=== PATIENT | male | born 1940 | race Caucasian/White ===

== ENCOUNTER 2016-09-29 07:33 | Emergency (ER) | payer MEDICARE ==
[2016-09-29 08:23] LABS: BILIRUBIN,URINE NEGATIVE (NEGATIVE); PH,URINE 6.5 PH (5.0-7.5)
[2016-09-29 08:30] LABS: UA w/ MICROSCOPIC CHARGE YES
[2016-09-29 08:42] LABS: UR CULTURE IF IND NOT INDICATED; WBC,URINE 0-3 /HPF (0-3)
[2016-09-29 09:38] LABS: BASOPHILS # (AUTO) 0.1 10^3/uL (0.0-0.1); BASOPHILS % (AUTO) 0.7 %; EOSINOPHILS # (AUTO) 0.3 10^3/uL (0.0-0.7); EOSINOPHILS % (AUTO) 3.2 %; HCT - HEMATOCRIT 49.7 % (42.0-52.0); HGB - HEMOGLOBIN 17.3 g/dL (14.0-18.0); LYMPHOCYTES # (AUTO) 3.2 10^3/uL (1.5-3.5); LYMPHOCYTES % (AUTO) 35.5 %; MEAN CORPUSCULAR HEMOGLOBIN 30.3 pg (27.0-31.0); MEAN CORPUSCULAR HGB CONC 34.8 g/dL (32.0-36.0); MEAN PLATELET VOLUME 7.2 fL (7.4-11.4); MONOCYTES # (AUTO) 0.8 10^3/uL (0.0-1.0); MONOCYTES % (AUTO) 9.2 %; NEUTROPHILS # (AUTO) 4.6 10^3/uL (1.5-6.6); NEUTROPHILS % (AUTO) 51.4 %; NUCLEATED RED BLOOD CELLS AUTO 0.3 /100WBC; RED BLOOD COUNT 5.72 10^6/uL (4.70-6.10); RED CELL DISTRIBUTION WIDTH 13.9 % (12.0-15.0); UNCORRECTED WHITE BLOOD COUNT 8.9 x10^3/uL; WHITE BLOOD COUNT 8.9 x10^3/uL (4.8-10.8)
[2016-09-29 09:50] LABS: ALBUMIN/GLOBULIN RATIO 1.3 (1.0-2.2); BILIRUBIN,TOTAL 1.1 mg/dL (0.2-1.0); CALCIUM 10.3 mg/dL (8.5-10.3); CREATININE 0.8 mg/dL (0.6-1.2); TOTAL PROTEIN 8.4 g/dL (6.7-8.2)
--- NOTE | 2016-09-29 10:50 | ED Physician Documentation ---
PD HPI MALE - Stated complaint Stated Complaint: BLOOD IN URINE - Chief complaint Chief Complaint: General - History obtained from History obtained from: Patient - History of Present Illness Timing - onset: Yesterday Timing - duration: Days (2) Timing - details: Gradual onset, Still present Associated symptoms: Hematuria. No: Urinary frequency, Unable to urinate, Discharge, Genital sore / lesion, Testiclar pain, Scrotal swelling, Abdominal pain, Back pain, Indwelling catheter, Chavez problem Similar symptoms before: Has not had sx before Recently seen: Not recently seen - Additional information Additional information: 75-year-old previously well male with development of hematuria yesterday with some pink urine and this morning with bright red urine. He has not had any clots in the urine. He is not have pain. He does not have a history of excessive physical activity. Review of Systems Constitutional: denies: Fever, Chills, Myalgias, Fatigue Eyes: denies: Decreased vision Ears: denies: Ear pain Nose: denies: Congestion Throat: denies: Sore throat Cardiac: denies: Chest pain / pressure, Palpitations Respiratory: denies: Dyspnea, Cough GI: denies: Abdominal Pain, Nausea, Vomiting : reports: Hematuria. denies: Dysuria, Frequency Skin: denies: Rash Musculoskeletal: denies: Neck pain, Back pain, Extremity pain PD PAST MEDICAL HISTORY - Past Medical History Past Medical History: Yes Cardiovascular: Hypertension Endocrine/Autoimmune: Type 2 diabetes - Present Medications Home Medications: Ambulatory Orders Medication Instructions Recorded Confirmed Amlodipine Besylate [Norvasc] 10 mg PO 09/29/16 Atorvastatin [Lipitor] 0 mg 09/29/16 Glipizide [Glipizide Xl] 5 mg PO 09/29/16 Lisinopril [Prinivil] 10 mg PO 09/29/16 Metformin HCl [Glucophage Xr] 500 mg PO 09/29/16 metFORMIN [Glucophage] 500 mg PO BIDWM 09/29/16 09/29/16 - Allergies Allergies/Adverse Reactions: Allergies Allergy/AdvReac Type Severity Reaction Status Date / Time No Known Drug Allergies Allergy Verified 09/29/16 07:40 - Social History Does the pt smoke?: No Smoking Status: Never smoker PD ED PE NORMAL - Vitals Vital signs reviewed: Yes (hypertensive ) - General General: No acute distress, Well developed/nourished - HEENT HEENT: Atraumatic, PERRL - Neck Neck: Supple, no meningeal sign - Cardiac Cardiac: RRR, No murmur - Respiratory Respiratory: No respiratory distress, Clear bilaterally - Abdomen Abdomen: Soft, Non tender - Back Back: No CVA TTP, No spinal TTP - Derm Derm: Normal color, No rash - Extremities Extremities: No deformity, No edema - Neuro Neuro: No motor deficit, No sensory deficit - Psych Psych: Normal mood, Normal affect Results - Vitals Vitals: Vital Signs - 24 hr 09/29/16 07:41 Temperature 36.6 C Heart Rate 65 Respiratory 16 Rate Blood Pressure 149/103 H O2 Saturation 95 Oxygen O2 Source Room air - Labs Labs: Laboratory Tests 09/29/16 09/29/16 09/29/16 07:40 09:27 09:27 WBC 8.9 RBC 5.72 Hgb 17.3 Hct 49.7 MCV 87.0 MCH 30.3 MCHC 34.8 RDW 13.9 Plt Count 199 MPV 7.2 L Neut # 4.6 Lymph # 3.2 [place] # 0.8 Eos # 0.3 Baso # 0.1 Absolute Nucleated RBC 0.02 Nucleated RBCs 0.3 Sodium 137 Potassium 4.0 Chloride 100 L Carbon Dioxide 28 Anion Gap 9.0 BUN 18 Creatinine 0.8 Estimated GFR (MDRD) 95 Glucose 179 H Calcium 10.3 Total Bilirubin 1.1 H AST 31 ALT 41 Alkaline Phosphatase 58 Total Protein 8.4 H Albumin 4.7 Globulin 3.7 Albumin/Globulin Ratio 1.3 Lipase 26 Urine Color RED/BLOODY Urine Clarity HAZY Urine pH 6.5 Ur Specific [place] 1.010 Urine Protein TRACE Urine Glucose (UA) NEGATIVE Urine Ketones NEGATIVE Urine Occult Blood LARGE H Urine Nitrite NEGATIVE Urine Bilirubin NEGATIVE Urine Urobilinogen 0.2 (NORMAL) Ur Leukocyte Esterase NEGATIVE Urine RBC TNTC H Urine WBC 0-3 Ur Squamous Epith Cells NONE SEEN Urine Bacteria None Seen Ur Microscopic Review INDICATED Urine Culture Comments NOT INDICATED PD MEDICAL DECISION MAKING - ED course Complexity details: reviewed results, re-evaluated patient, considered differential, d/w patient ED course: 75-year-old male with asymptomatic hematuria without clots has no evidence of acute kidney injury on examination of his blood and no proteinuria or urine casts. He will need referral to urology for further workup. Departure - Departure Disposition: 01 Home, Self Care Clinical Impression: Hematuria Condition: Stable Instructions: ED Hematuria, Hematuria Poss Causes Follow-Up: [facility] [Provider Group] Comments: Today the urine has blood in it without clots and without excessive debries. You will need to have further evaluation done by a urologist. If you develop urinary retention that is an emergency and a reason to return to the ED.
[2016-09-29 11:10] VITALS: BP 131/75
== END 2016-09-29 11:08 | disposition home or self-care (01) ==
LOC: ED 07:33
DX: R31.9 Hematuria, unspecified (principal); E11.9 Type 2 diabetes mellitus without complications; I10 Essential (primary) hypertension; Z79.84 Long term (current) use of oral hypoglycemic drugs
CPT/HCPCS: 36415; 80053; 81001; 81003; 83690; 85025; 87086; 99283

== ENCOUNTER 2020-07-05 09:45 | Outpatient (CLI) | payer MEDICARE | END 2020-07-05 09:46 | disposition left against medical advice (07) | LOC: EMS 09:45 | DX: R53.1 Weakness (principal) ==

== ENCOUNTER 2021-11-14 17:17 | Emergency (ER) | payer MEDICARE ==
[2021-11-14 19:16] LABS: BILIRUBIN,URINE NEGATIVE (NEGATIVE); GLUCOSE, URINE (UA) NEGATIVE (NEGATIVE); KETONES,URINE (UA) 40 mg/dL (NEGATIVE); LEUKOCYTE ESTERASE, URINE SMALL (NEGATIVE); NITRITE,URINE POSITIVE (NEGATIVE); OCCULT BLOOD,URINE SMALL (NEGATIVE); PROTEIN,URINE 30 mg/dL (NEGATIVE); UROBILINOGEN,URINE 0.2 (NORMAL) E.U./dL (NORMAL)
--- NOTE | 2021-11-14 19:17 | ED Physician Documentation ---
History of Present Illness - Stated complaint Stated Complaint: DEHYDRATED - Chief complaint Chief Complaint: General - Additonal information Additional information: 81-year-old male has a history Mo significant for hypertension and presents the ER for evaluation of generalized weakness. Over the last 24 hours he has had loss of appetite and felt generally fatigued. He had a fever of 101.4 earlier today. He has eaten and drank very little. He is denying chest pain, abdominal pain, nausea vomiting or any shortness of air. He just feels like he cannot get out of bed. He is fully vaccinated boosted for COVID-19. Denies any URI symp toms. No urinary symptoms. Review of Systems Constitutional: reports: Fever, Fatigue Eyes: reports: Reviewed and negative Throat: reports: Reviewed and negative Cardiac: reports: Reviewed and negative Respiratory: reports: Reviewed and negative GI: reports: Reviewed and negative : reports: Reviewed and negative Skin: reports: Reviewed and negative Musculoskeletal: reports: Reviewed and negative Neurologic: reports: Reviewed and negative PD PAST MEDICAL HISTORY - Past Medical History Past Medical History: Yes Cardiovascular: Hypertension, High cholesterol Respiratory: None Neuro: None Endocrine/Autoimmune: Type 2 diabetes GI: None : Other HEENT: None Psych: None Musculoskeletal: Osteoarthritis Derm: None Other Past Medical History: bladder cancer - Past Surgical History Past Surgical History: Yes - Present Medications Home Medications: Ambulatory Orders Medication Instructions Recorded Confirmed Amlodipine Besylate [Norvasc] 10 mg PO DAILY 09/29/16 11/14/21 Atorvastatin [Lipitor] 10 mg ORAL HS 09/29/16 11/14/21 Glipizide [Glipizide Xl] 5 mg PO DAILY 09/29/16 11/14/21 Metformin HCl [Glucophage Xr] 1,000 mg PO BID 09/29/16 11/14/21 Cefpodoxime Proxetil [Vantin] 100 mg PO Q12H #20 tablet 11/14/21 Metoprolol Tartrate [Lopressor] 50 mg PO DAILY 11/14/21 11/14/21 - Allergies Allergies/Adverse Reactions: Allergies Allergy/AdvReac Type Severity Reaction Status Date / Time No Known Drug Allergies Allergy Verified 11/14/21 17:25 - Social History Does the pt smoke?: No Smoking Status: Former smoker Does the pt drink ETOH?: No Does the pt have substance abuse?: No - Immunizations Immunizations are current?: Yes PD ED PE NORMAL - General General: Alert and oriented X 3, No acute distress, Well developed/nourished - HEENT HEENT: Ears normal, Pharynx benign. No: Moist mucous membranes (Dry lips and tongue) - Neck Neck: Supple, no meningeal sign, No adenopathy, No JVD - Cardiac Cardiac: RRR, No murmur - Respiratory Respiratory: No respiratory distress, Clear bilaterally - Abdomen Abdomen: Normal bowel sounds, Soft, Non tender - Derm Derm: Normal color, Warm and dry - Extremities Extremities: No deformity, No tenderness to palpate, Normal ROM s pain - Neuro Neuro: Alert and oriented X 3, patient representative 2-12 intact Eye Opening: Spontaneous Motor: Obeys Commands Verbal: Oriented GCS Score: 15 Results - Vitals Vitals: Vital Signs - 24 hr 11/14/21 11/14/21 17:27 19:31 Temperature 37.6 C Heart Rate 107 H 81 Respiratory 20 16 Rate Blood Pressure 170/71 H 144/83 H O2 Saturation 96 98 Oxygen O2 Source Room air - Labs Labs: Laboratory Tests 11/14/21 11/14/21 11/14/21 19:08 19:09 19:09 WBC 20.0 H RBC 5.11 Hgb 15.5 Hct 44.6 MCV 87.3 MCH 30.3 MCHC 34.8 RDW 14.2 Plt Count 182 MPV 9.7 Neut # (Auto) Not Reportable Lymph # (Auto) Not Reportable [place] # (Auto) Not Reportable Eos # (Auto) Not Reportable Baso # (Auto) Not Reportable Absolute Nucleated RBC Not Reportable Total Counted 100 Band Neuts % (Manual) 0 Abnorm Lymph % (Manual) 0 Nucleated RBC % Not Reportable Neutrophils # (Manual) 15.2 H Lymphocytes # (Manual) 2.0 Monocytes # (Manual) 1.6 H Eosinophils # (Manual) 1.2 H Basophils # (Manual) 0.0 Differential Comment MANUAL DIFFERENTIAL Manual Slide Review Indicated Platelet Estimate NORMAL (130-450,000) Platelet Morphology NORMAL APPEARANCE RBC Morph Micro Appear NORMAL APPEARANCE Sodium 134 L Potassium 3.5 Chloride 98 L Carbon Dioxide 27 Anion Gap 9.0 BUN 20 Creatinine 0.8 Estimated GFR (MDRD) 93 Glucose 200 H Lactic Acid Calcium 9.5 Total Bilirubin 1.3 H AST 22 ALT 34 Alkaline Phosphatase 64 Total Protein 7.7 Albumin 4.1 Globulin 3.6 Albumin/Globulin Ratio 1.1 Urine Color DARK YELLOW Urine Clarity CLOUDY Urine pH 6.0 Ur Specific [place] >=1.030 H Urine Protein 30 H Urine Glucose (UA) NEGATIVE Urine Ketones 40 H Urine Occult Blood SMALL H Urine Nitrite POSITIVE H Urine Bilirubin NEGATIVE Urine Urobilinogen 0.2 (NORMAL) Ur Leukocyte Esterase SMALL H Urine RBC 11-25 H Urine WBC >25 H Urine WBC Clumps PRESENT Ur Squamous Epith Cells NONE SEEN Urine Bacteria Many H Urine Culture Comments INDICATED SARS-CoV-2 (PCR) 11/14/21 11/14/21 19:09 19:10 WBC RBC Hgb Hct MCV MCH MCHC RDW Plt Count MPV Neut # (Auto) Lymph # (Auto) [place] # (Auto) Eos # (Auto) Baso # (Auto) Absolute Nucleated RBC Total Counted Band Neuts % (Manual) Abnorm Lymph % (Manual) Nucleated RBC % Neutrophils # (Manual) Lymphocytes # (Manual) Monocytes # (Manual) Eosinophils # (Manual) Basophils # (Manual) Differential Comment Manual Slide Review Platelet Estimate Platelet Morphology RBC Morph Micro Appear Sodium Potassium Chloride Carbon Dioxide Anion Gap BUN Creatinine Estimated GFR (MDRD) Glucose Lactic Acid 1.7 Calcium Total Bilirubin AST ALT Alkaline Phosphatase Total Protein Albumin Globulin Albumin/Globulin Ratio Urine Color Urine Clarity Urine pH Ur Specific [place] Urine Protein Urine Glucose (UA) Urine Ketones Urine Occult Blood Urine Nitrite Urine Bilirubin Urine Urobilinogen Ur Leukocyte Esterase Urine RBC Urine WBC Urine WBC Clumps Ur Squamous Epith Cells Urine Bacteria Urine Culture Comments SARS-CoV-2 (PCR) NOT DETECTED - Rads (name of study) cxr Radiology: Final report received (No acute cardiopulmonary abnormality) CT abd Radiology: Final report received (Suggestion of mild bladder wall thickening. No bladder stones. No hydronephrosis. Evaluation for pyelonephritis is limited. Small nonobstructing left renal stone. Colonic diverticulosis without-itis. Cholelithiasis without acute cholecycystitis) PD MEDICAL DECISION MAKING - ED course Complexity details: reviewed results, re-evaluated patient, considered differential, d/w patient, d/w family ED course: Well-appearing 81-year-old male presents emergency department for evaluation of generalized fatigue, low-grade temperature elevation and general loss of appetite/weakness that began about 24 hours ago. He has had no chest pain or shortness of air. He denied any abdominal pain or dysuria. However on presentation he appeared fairly dehydrated with dry mucous membranes and fairly concentrated appearing urine. Given that he had reported a fever at home we did do sepsislabs including blood count. His white blood cell count is 20,000. He was given a liter of fluids here in the ER but he is not tachycardic or hypotensive. Chest x-ray showed no acute findings but his urine was consistent with acute cystitis. There was no abdominal pain elicited, flank or CVA tenderness. But given the leukocytosis a CT of the abdomen was completed with no findings to suggest acute pyelonephritis. There is some bladder wall thickening most consistent with acute cystitis. Here in the ER he is given 1 g of ceftriaxone. Given the leukocytosis, And his age I did offer the patient observation admission but he declined that at this time. He is able to ambulate well in the hallway. He has had no fever, hypotension or tachycardia here. He will be discharged with a prescription for cefpodoxime/Vantin. Advise close follow-up with his primary care provider. Emergent return precautions were discussed for worsening symptoms. Departure - Departure Disposition: Home, Self Care Clinical Impression: Acute cystitis Qualifiers: Hematuria presence: without hematuria Qualified Code(s): N30.00 - Acute cystitis without hematuria Leukocytosis Qualifiers: Leukocytosis type: unspecified Qualified Code(s): D72.829 - Elevated white blood cell count, unspecified Condition: Stable Record reviewed to determine appropriate education?: Yes Instructions: ED Infec Bladder Cystitis Male Prescriptions: Cefpodoxime Proxetil [Vantin] 100 mg PO Q12H #20 tablet Comments: Clinton coronado are seen today in the emergency department because you have had some generalized weakness and fever at home. Here in the emergency department we did do labs. We do find that you have a urinary tract infection. Associated with this is an elevated white blood cell count. However while in the emergency department you have not had a fever. Your blood pressure and heart rates have been normal. We did do a CT of your abdomen. It does show a bladder that is thickened, this is most consistent with a urinary infection. Here in the emergency department we did give you a dose of antibiotics. A prescription for Vantin has been sent to the [facility] in [place]. It is important that you stay well-hydrated. If you find that despite taking the antibiotics your weakness does not improve, you develop worsening fevers, have abdominal pain, chest pain or any fainting episodes you must return immediately to the ER.
[2021-11-14 19:21] LABS: BASOPHILS % (AUTO) 0.2 %; EOSINOPHILS % (AUTO) 23.3 %; HCT - HEMATOCRIT 44.6 % (42.0-52.0); HGB - HEMOGLOBIN 15.5 g/dL (14.0-18.0); LYMPHOCYTES % (AUTO) 11.4 %; MEAN CORPUSCULAR HEMOGLOBIN 30.3 pg (27.0-31.0); MEAN CORPUSCULAR HGB CONC 34.8 g/dL (32.0-36.0); MEAN CORPUSCULAR VOLUME 87.3 fL (80.0-94.0); MEAN PLATELET VOLUME 9.7 fL (7.4-11.4); MONOCYTES % (AUTO) 11.4 %; NEUTROPHILS % (AUTO) 52.9 %; PLT - PLATELET COUNT 182 10^3/uL (130-450); RED BLOOD COUNT 5.11 10^6/uL (4.70-6.10); RED CELL DISTRIBUTION WIDTH 14.2 % (12.0-15.0)
[2021-11-14 19:24] LABS: SLIDE REVIEW? Indicated
[2021-11-14 19:24] LABS: CLARITY,URINE CLOUDY (CLEAR)
[2021-11-14 19:25] LABS: ABNORMAL LYMPHS % (MANUAL) 0 %; BAND NEUTROPHILS % (MANUAL) 0 %
[2021-11-14 19:25] LABS: BACTERIA,URINE Many /HPF (None Seen); SQUAMOUS EPITHELIAL CELL,UR NONE SEEN (<= Few); WBC CLUMPS,URINE PRESENT; WBC,URINE >25 /HPF (0-3)
[2021-11-14 19:29] LABS: ALBUMIN 4.1 g/dL (3.2-5.5); ALBUMIN/GLOBULIN RATIO 1.1 (1.0-2.2); BILIRUBIN,TOTAL 1.3 mg/dL (0.2-1.0); CALCIUM 9.5 mg/dL (8.5-10.3); CREATININE 0.8 mg/dL (0.6-1.2); POTASSIUM 3.5 mmol/L (3.5-5.0); TOTAL PROTEIN 7.7 g/dL (6.7-8.2)
[2021-11-14] MEDS: SODIUM CHLORIDE 0.9% 1,000 ML IV STA (19:40)
[2021-11-14 19:41] VITALS: BP 144/83
--- NOTE | 2021-11-14 19:41 | XRAY Report ---
PROCEDURE: Chest 1 View X-Ray INDICATIONS: chest pain TECHNIQUE: One view of the chest was acquired. COMPARISON: None. FINDINGS: Surgical changes and devices: None. Lungs and pleura: No pleural effusions or pneumothorax. Lungs are clear. Mediastinum: Mediastinal contours appear normal. Heart size is enlarged. Bones and chest wall: No suspicious bony lesions. Overlying soft tissues appear unremarkable. IMPRESSION: No acute cardiopulmonary pathology. Reviewed by: Rj Gerard MD on 11/14/2021 7:40 PM PDT Approved by: Rj Gerard MD on 11/14/2021 7:40 PM PDT Station ID: [id number]
[2021-11-14 19:56] LABS: EOSINOPHILS # (MANUAL) 1.2 10^3/uL (0-0.7); LYMPHOCYTES % (MANUAL) 10 %; MONOCYTES # (MANUAL) 1.6 10^3/uL (0.0-1.0); NEUTROPHILS # (MANUAL) 15.2 10^3/uL (1.5-6.6); PLATELET ESTIMATE, MANUAL NORMAL (130-450,000) (NORMAL); PLATELET MORPHOLOGY NORMAL APPEARANCE (NORMAL); RBC MORPHOLOGY (MULTIPLE) NORMAL APPEARANCE (NORMAL)
[2021-11-14 19:57] LABS: DIFFERENTIAL COMMENT MANUAL DIFFERENTIAL
[2021-11-14] MEDS: cefTRIAXone 1 GM VIAL IVP STA (20:00)
--- NOTE | 2021-11-14 20:39 | CT Report ---
PROCEDURE: Abdomen/Pelvis WO INDICATIONS: acute cystitis TECHNIQUE: Noncontrast 5 mm thick sections acquired from the diaphragms to the symphysis. 5 mm coronal and sagi ttal reformats were then performed. For radiation dose reduction, the following was used: automated exposure control, adjustment of mA and/or kV according to patient size. COMPARISON: None. FINDINGS: Image quality: Excellent. Lung bases:There is mild dependent atelectasis bilaterally. Heart: Heart is normal in size. ABDOMEN: Liver:There is diffuse hypoattenuation of the liver compatible with fatty infiltration. Gallbladder:There are calcified gallstones in the gallbladder without associated wall thickening or pericholecystic fluid. Biliary ducts: No biliary ductal dilatation. Pancreas: Unremarkable. Spleen: Normal in size. Adrenal Glands:There is thickening of the left adrenal gland. Kidneys and Ureters: No hydronephrosis.A nonobstructing left renal stone measuring up to 0.3 cm is demonstrated. Stomach and Bowel: Stomach, small bowel loops, and colon are normal in caliber and wall thickness. T he appendix is normal in appearance. There is colonic diverticulosis without acute diverticulitis. Peritoneum: No abnormal intraperitoneal fluid. No free air. Ventral Wall: No hernia. Abdominal Nodes: No retroperitoneal or mesenteric adenopathy by size criteria. Vessels: Aorta and inferior vena cava are normal in size. PELVIS: Pelvic Organs:There is mild to moderate enlargement of the prostate.. Bladder:The urinary bladder is partially distended. There is suggestion of mild bladder wall thicken ing. No calcified urinary stones. Pelvic Nodes: No enlarged lymph nodes. Miscellaneous: No inguinal hernias are seen. Bones: Visualized osseous structures demonstrate no suspicious focal lesions. IMPRESSION: 1. Suggestion of mild bladder wall thickening but evaluation is limited due to incomplete bladder dis tention. No bladder stones. 2. No hydronephrosis. Evaluation for pyelonephritis is limited in the absence of intravenous contrast . 3. Small nonobstructing left renal stone. 4. Colonic diverticulosis without acute diverticulitis. 5. Cholelithiasis without CT evidence of acute cholecystitis. Reviewed by: Cuco Davila MD on 11/14/2021 8:38 PM PDT Approved by: Cuco Davila MD on 11/14/2021 8:38 PM PDT Station ID: [id number]
== END 2021-11-14 21:23 | disposition home or self-care (01) ==
LOC: ED 17:17
DX: N30.00 Acute cystitis without hematuria (principal); D72.829 Elevated white blood cell count, unspecified; I10 Essential (primary) hypertension; E11.9 Type 2 diabetes mellitus without complications; Z79.84 Long term (current) use of oral hypoglycemic drugs; Z87.891 Personal history of nicotine dependence; Z20.822 Contact with and (suspected) exposure to COVID-19
CPT/HCPCS: 36415; 80053; 81001; 83605; 85025; 87040; 87086; 87181; 96374; 99284

== ENCOUNTER 2022-07-31 12:21 | Outpatient (CLI) | payer MEDICARE ==
[2022-07-31 12:47] LABS: ESTIMATED AVERAGE GLUCOSE 137 mg/dL (70-100); HEMOGLOBIN A1c% 6.4 % (4.27-6.07)
[2022-07-31 12:48] LABS: CREATININE,URINE 163.3 mg/dL; MICROALBUMIN,URINE 3.6 mg/dL (0-300.0)
[2022-07-31 12:53] LABS: ALBUMIN 4.2 g/dL (3.2-5.5); BUN - BLOOD UREA NITROGEN 23 mg/dL (6-20); CALCIUM 9.7 mg/dL (8.5-10.3); CARBON DIOXIDE - CO2 26 mmol/L (21-32); CHLORIDE 105 mmol/L (101-111); CHOL/HDL RATIO 4.7 (<5.0); CHOLESTEROL 169 mg/dL; CREATININE 1.1 mg/dL (0.6-1.2); GFR - MDRD 65 (>89); GLUCOSE 257 mg/dL (70-100); HDL CHOLESTEROL 36 mg/dL; LDL CHOLESTEROL,CALCULATED 99 mg/dL; LDL/HDL RATIO 2.8 (<3.6); PHOSPHORUS 3.3 mg/dL (2.5-4.6); POTASSIUM 3.8 mmol/L (3.5-5.0); SODIUM 140 mmol/L (135-145); TRIGLYCERIDES 169 mg/dL; VLDL CHOLESTEROL 34 mg/dL
[2022-08-01 05:13] LABS: HCV AB Non Reactive (Non Reactive)
== END 2022-07-31 12:22 | disposition home or self-care (01) ==
LOC: LAB 12:21
PROVIDERS: ATTEND Family Medicine
DX: I10 Essential (primary) hypertension (principal); E11.22 Type 2 diabetes mellitus with diabetic chronic kidney disease; E11.69 Type 2 diabetes mellitus with other specified complication
CPT/HCPCS: 36415; 80061; 80069; 82043; 82570; 83036; 83721; 86803

== ENCOUNTER 2022-09-09 08:00 | Outpatient (CLI) | payer MEDICARE ==
[2022-09-09 20:23] LABS: BILIRUBIN,URINE NEGATIVE (NEGATIVE); GLUCOSE, URINE (UA) NEGATIVE (NEGATIVE); KETONES,URINE (UA) TRACE mg/dL (NEGATIVE); LEUKOCYTE ESTERASE, URINE NEGATIVE (NEGATIVE); NITRITE,URINE NEGATIVE (NEGATIVE); OCCULT BLOOD,URINE NEGATIVE (NEGATIVE); PH,URINE 6.5 PH (5.0-7.5); PROTEIN,URINE NEGATIVE (NEGATIVE); UROBILINOGEN,URINE 1 (NORMAL) E.U./dL (NORMAL)
[2022-09-09 20:24] LABS: CLARITY,URINE CLEAR (CLEAR)
[2022-09-09 20:59] LABS: BACTERIA,URINE Rare /HPF (None Seen); MUCUS,URINE Few Strands; RBC,URINE 0-5 /HPF (0-5); SQUAMOUS EPITHELIAL CELL,UR RARE Squamous (<= Few); WBC,URINE 0-3 /HPF (0-3)
== END 2022-09-09 23:59 | disposition home or self-care (01) ==
LOC: LAB.S 08:00
PROVIDERS: ATTEND Emergency Medicine
DX: R35.0 Frequency of micturition (principal)
CPT/HCPCS: 81001; 87086

== ENCOUNTER 2022-09-09 13:42 | Outpatient (CLI) | payer MEDICARE | END 2022-09-09 13:43 | disposition home or self-care (01) | LOC: LAB.S 13:42 | PROVIDERS: ATTEND Emergency Medicine | DX: R35.0 Frequency of micturition (principal) | CPT/HCPCS: 36415; 84153 ==